=== PATIENT | male | born 1995 | race Caucasian/White ===

== ENCOUNTER → 2017-06-25 | Outpatient (CLI) | payer BC ==
--- NOTE | 2017-06-25 09:11 | DIAGNOSTIC IMAGING REPORT ---
ABDOMINAL ULTRASOUND COMPLETE HISTORY: Generalized abdominal pain.. COMPARISON: None. FINDINGS: Pancreas: The pancreatic head is obscured by overlying bowel gas. The remaining portions of the pancreas are within normal limits. Liver: Unremarkable. Gallbladder: No gallbladder wall thickening. No gallstones. CBD: 2 mm. Kidneys: No hydronephrosis. Spleen: Normal in size measuring 10.8 cm in length.. Aorta: Normal in caliber. IVC: Patent. IMPRESSION: No significant abnormality identified within the within the abdomen. Electronically signed by: Neel Berman M.D. 06/25/2017 9:10 AM Dictated Date/Time: 06/25/2017 9:09 AM
--- NOTE | 2017-06-25 09:18 | DIAGNOSTIC IMAGING REPORT ---
ULTRASOUND TESTES AND SCROTUM CLINICAL HISTORY: Generalized abdominal pain. Left testicular lump. COMPARISON STUDY: No priors. TECHNIQUE: Real-time, grayscale, and color Doppler sonography of the testes and scrotum is performed. Images are reviewed in the transverse and longitudinal planes. FINDINGS: The testes are normal in size and homogeneous in echotexture. The right testis measures 4.4 x 2.2 x 2.9 cm and the left testis measures 4.3 x 2.1 x 2.7 cm. No intratesticular mass is seen. Testicular blood flow is normal and symmetric. Normal Doppler waveforms are identified in both testes. The epididymal heads are normal in appearance. The right epididymal head measures 1.1 cm in length and the left epididymal head measures 1.1 cm in length. There is a tiny left-sided hydrocele. A tiny left-sided varicocele measures up to 3 mm. There is a tiny calcified scrotal is seen on the left. At the point of palpable concern there is a 5 mm ovoid cystic structure seen within the tunica albuginea, likely representing a small tunica cyst. IMPRESSION: 1. Normal sonographic appearance of the testes. 2. There is a 5 mm ovoid cystic structure identified at the site of palpable concern. This likely represents a cyst of the left tunica albuginea. 3. There is a tiny left-sided hydrocele and varicocele. Electronically signed by: Chuck Briones M.D. 06/25/2017 9:16 AM Dictated Date/Time: 06/25/2017 9:10 AM
== END | disposition home or self-care (01) ==
LOC: C.ULTRBC 07:53
PROVIDERS: ATTEND Internal Medicine Gastroenterology
DX: R19.00 Intra-abdominal and pelvic swelling, mass and lump, unspecified site (principal); R10.9 Unspecified abdominal pain

== ENCOUNTER → 2018-01-01 | Outpatient (CLI) | payer BC ==
[~2018-01-01] MED LIST: OPTIRAY 320 IV PRN
--- NOTE | 2018-01-01 15:57 | DIAGNOSTIC IMAGING REPORT ---
CT (CHEST) THORAX WITH CLINICAL HISTORY: 22 years-old Male presenting with CHEST PAIN, LUQ ABD PAIN. TECHNIQUE: Multidetector CT imaging of the chest was performed after the administration of intravenous contrast. IV contrast: 94 mL of Optiray 320. A dose lowering technique was used consistent with the principles of ALARA (as low as reasonably achievable). COMPARISON: None. CT DOSE (mGy.cm): The estimated cumulative dose is 396.87. FINDINGS: Chief Of Internal Medicine topogram: Unremarkable. On soft tissue windows, normal thyroid and thoracic inlet. No axillary, supraclavicular, hilar, or mediastinal lymphadenopathy. Normal aorta. Normal heart size. No pericardial or pleural effusion. Upper abdomen normal. On lung windows, no focal infiltrate or nodule. Airways patent. On bone windows, normal osseous structures. IMPRESSION: 1. No acute intrathoracic pathology. Electronically signed by: Ottoniel Chung M.D. 01/01/2018 3:55 PM Dictated Date/Time: 01/01/2018 3:52 PM
--- NOTE | 2018-01-01 16:07 | DIAGNOSTIC IMAGING REPORT ---
ABD WITH IV AND ORAL CONT (CT) HISTORY: 22 years-old Male CHEST PAIN, LUQ ABD PAIN acute left upper quadrant abdominal pain COMPARISON: Chest CT of same day TECHNIQUE: Multiple axial CT images of the abdomen were obtained following the intravenous administration of 94 mL Optiray 320. A dose lowering technique was used consistent with the principals of YESENIA. FINDINGS: Lung bases are clear. There is no pneumatosis or pneumoperitoneum identified. Imaged inferior cardiac chambers are unremarkable. Liver, gallbladder, spleen, pancreas and adrenal glands are within normal limits. Kidneys, and ureters appear unremarkable. Aorta is normal in course and caliber. IVC appears patent. No bulky adenopathy identified. No bowel obstruction or focal bowel wall thickening identified. No mesenteric inflammatory changes or ascites. Moderate volume of formed stool is noted throughout the colon. Air-filled tubular structure of the right lower quadrant abdomen suggests normal appendix. Soft tissues are unremarkable. Bones appear intact. IMPRESSION: 1. No acute intra-abdominal abnormality identified. 2. No bowel obstruction or focal bowel wall thickening. Partially imaged appendix appears normal. 3. Moderate volume of formed stool throughout the colon suggest constipation. The above report was generated using voice recognition software. It may contain grammatical, syntax or spelling errors. Electronically signed by: Zion Hicks M.D. 01/01/2018 4:05 PM Dictated Date/Time: 01/01/2018 4:01 PM
== END | disposition home or self-care (01) ==
LOC: C.CTS 15:11
PROVIDERS: ATTEND Physician Assistant
DX: R10.12 Left upper quadrant pain (principal); R07.9 Chest pain, unspecified